=== PATIENT | male | born 1945 ===

== ENCOUNTER 2018-11-06 09:24 | Outpatient (CLI) | payer MEDICARE, BC | END 2018-11-06 09:25 | disposition home or self-care (01) | LOC: C.CTH 09:24 ==

== ENCOUNTER 2018-11-15 08:55 | Outpatient (CLI) | payer MEDICARE, BC | END 2018-11-15 08:56 | disposition home or self-care (01) | LOC: C.RADIC 08:55 ==

== ENCOUNTER 2018-11-16 12:44 | Outpatient (CLI) | payer MEDICARE, BC | END 2018-11-16 12:45 | disposition home or self-care (01) | LOC: C.CTH 12:44 | DX: R91.8 Other nonspecific abnormal finding of lung field (principal) ==